=== PATIENT | female | born 1940 | race Caucasian/White ===

== ENCOUNTER 2017-05-08 19:57 | Emergency (ER) | payer MEDICARE, BC ==
[2017-05-08 20:33] LABS: BASOPHILS 0 % (0-2); HEMATOCRIT 40.7 % (36.0-48.0); HEMOGLOBIN 14.2 g/dL (12-16); IMMATURE GRANULOCYTES 0.4 % (0-5); LYMPHOCYTES 1.8 % (15-50); MCH 33.6 pg (26.0-34.0); MCHC 34.9 g/dL (31.0-37.0); MCV 96.2 fL (80.0-100.0); MEAN PLATELET VOLUME 9.2 fL (7.4-10.4); MONOCYTES 3.3 % (2-11); NEUTROPHILS 93.5 % (40-80); PLATELET COUNT 172 10x3/uL (130-400); RBC 4.23 10x6/uL (4.00-5.40); RDW 12.2 % (11.5-14.5); WBC 11.4 10x3/uL (4.8-10.8)
[2017-05-08 20:47] LABS: INR 1.01 (0.85-1.17); PROTIME 12.9 SECONDS (11.6-15.0)
[2017-05-08 20:49] LABS: D-DIMER-QUANTITATIVE 0.56 ug/mLFEU (0.20-0.54)
[2017-05-08 21:04] LABS: ALBUMIN 3.7 g/dL (3.4-5.0); ALKALINE PHOSPHATASE 75 U/L (46-116); ALT (SGPT) 33 U/L (10-68); BILIRUBIN - TOTAL 0.91 mg/dL (0.2-1.3); CALC OSMOLALITY 280 mosm/kg (275-300); CALCIUM 9.4 mg/dL (8.5-10.1); CHLORIDE - SERUM 101 mmol/L (98-107); GLUCOSE 137 mg/dL (74-106); PROTEIN - SERUM 7.5 g/dL (6.4-8.2); SODIUM 138 mmol/L (136-145); UREA NITROGEN 20 mg/dL (7-18); eGFR NON AFRICAN AMERICAN 57 mL/min (90-120)
[2017-05-08 21:15] LABS: CKMB 0.9 U/L (0.0-3.6); CREATINE KINASE 83 UL (21-215); LIPASE 109 U/L (73-393); MAGNESIUM - SERUM 1.9 mg/dL (1.8-2.4); PRO BNP 203 pg/mL (0-450)
[2017-05-08 21:19] LABS: TROPONIN-I < 0.017 ng/mL (0.000-0.060)
== END 2017-05-08 23:08 | disposition home or self-care (01) ==
LOC: D.ER 19:57
PROVIDERS: Family Medicine
DX: R42 Dizziness and giddiness (principal); K21.9 Gastro-esophageal reflux disease without esophagitis

== ENCOUNTER → 2019-06-15 09:53 | Outpatient (CLI) | payer MEDICARE, BC ==
[2019-06-15 11:13] LABS: ALBUMIN 3.5 g/dL (3.4-5.0); BILIRUBIN - DIRECT 0.12 mg/dL (0.00-0.30); BILIRUBIN - INDIRECT 0.35 mg/dL (0.00-1.00); BILIRUBIN - TOTAL 0.47 mg/dL (0.2-1.3); PROTEIN - SERUM 7.6 g/dL (6.4-8.2)
== END | disposition home or self-care (01) ==
LOC: D.LAB 09:45 → D.US 10:00
PROVIDERS: ATTEND Internal Medicine Gastroenterology
DX: K76.0 Fatty (change of) liver, not elsewhere classified (principal)

== ENCOUNTER → 2019-12-14 09:47 | Outpatient (CLI) | payer MEDICARE, BC ==
[2019-12-14 11:06] LABS: ALBUMIN 3.7 g/dL (3.4-5.0); BILIRUBIN - DIRECT 0.11 mg/dL (0.00-0.30); BILIRUBIN - INDIRECT 0.44 mg/dL (0.00-1.00); BILIRUBIN - TOTAL 0.55 mg/dL (0.2-1.3); PROTEIN - SERUM 7.6 g/dL (6.4-8.2)
== END | disposition home or self-care (01) ==
LOC: D.LAB 09:47 → D.US 10:30
PROVIDERS: ATTEND Internal Medicine Gastroenterology
DX: K76.0 Fatty (change of) liver, not elsewhere classified (principal)